=== PATIENT | female | born 1975 | race Caucasian/White ===

== ENCOUNTER 2021-04-04 16:51 | Emergency (ER) | payer MEDICAID, OTHER ==
[~2021-04-04] VITALS: Ht 177 cm; Wt 149.0 kg
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
[2021-04-04 17:04] VITALS: BP 156/86
[2021-04-04] MEDS ORDERED: ACETAMINOPHEN 500 MG TAB (TYLENOL) PO ONE (17:15)
--- NOTE | 2021-04-04 17:23 | Diagnostic Imaging Report ---
INDICATION: Trauma, pain COMPARISON: None available. TECHNIQUE: 3 radiographs of the left shoulder dated 04/04/2021 FINDINGS: The acromioclavicular joint is unremarkable. No acute fracture or dislocation. No destructive osseous process. The visualized left lung appears clear. No suspicious radiopaque foreign body. IMPRESSION: No acute osseous abnormality. Dictated by: Dictated on workstation # [id number]
--- NOTE | 2021-04-04 17:24 | Diagnostic Imaging Report ---
INDICATION: Trauma, pain COMPARISON: None available TECHNIQUE: 3 radiographs of the right foot dated 04/04/2021 FINDINGS: No acute fracture or dislocation. No destructive osseous process. The Lisfranc joint is well aligned. Mild scattered degenerative changes, greatest involving the 1st MTP joint. Moderate sized plantar calcaneal enthesophyte. No suspicious radiopaque foreign body. IMPRESSION: No acute osseous abnormality with mild degenerative changes present. Dictated by: Dictated on workstation # [id number]
== END 2021-04-04 18:10 | disposition home or self-care (01) ==
LOC: ER FS 16:55
DX: S46.012A Strain of muscle(s) and tendon(s) of the rotator cuff of left shoulder, initial encounter (principal); S90.31XA Contusion of right foot, initial encounter; Z72.0 Tobacco use; W20.8XXA Other cause of strike by thrown, projected or falling object, initial encounter
CPT/HCPCS: 73030; 73630; 99281

== ENCOUNTER → 2021-04-19 | Outpatient (CLI) | payer MEDICAID ==
[~2021-04-19] MED LIST: ACHD5005 PO
--- NOTE | 2021-04-19 15:48 | Diagnostic Imaging Report ---
EXAMINATION: Left clavicle at 2:01 PM. INDICATION: Clavicular pain. TECHNIQUE: Two views were obtained. FINDINGS: There is no fracture, dislocation, or acute bony abnormality evident. There is only mild degenerative disease of the glenohumeral and acromioclavicular joints. These degenerative changes are no different than on the recent left shoulder exam of 04/04/2021. The soft tissues are unremarkable. IMPRESSION: There is no acute bony abnormality appreciated. Dictated by: Dictated on workstation # [id number]
== END ==
LOC: RAD FS 13:47
PROVIDERS: ATTEND Nurse Practitioner
DX: M25.512 Pain in left shoulder (principal)
CPT/HCPCS: 73000

== ENCOUNTER 2021-04-21 09:47 | Emergency (ER) | payer OTHER, MEDICAID ==
[~2021-04-21] VITALS: Ht 177 cm; Wt 147.0 kg
[2021-04-21] MEDS ORDERED: morphine INJ 10 MG/ML 1ML (SYR OR VIAL) IVP STA (09:55)
[2021-04-21] MEDS ORDERED: ONDANSETRON 4 MG/2 ML (SDV) Z0FRAN IVP ONE (10:00)
[2021-04-21] MEDS ORDERED: NS IV 1000 ML 1,000 ML IV SCH (10:00)
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
[2021-04-21] MEDS ORDERED: CATHETER FLUSH 10 ML SYR IV PRN (10:15)
[2021-04-21] MEDS ORDERED: IOHEXOL 350 MG/ML 100 ML (OMNIPAQUE 350) VIAL IV ONE (10:15)
[2021-04-21] MEDS ORDERED: fentaNYL INJ 100 MCG/2 ML AMP IVP ONE ×2 (10:15→11:30)
[2021-04-21] MEDS ORDERED: HOLD METFORMIN - RECEIVED CONTRAST 20 ML VIAL IV SCH (10:15)
[2021-04-21] MEDS ORDERED: NS 100 ML (IVPB) BAG IV ONE (10:15)
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
[2021-04-21 10:53] LABS: PROTHROMBIN TIME PATIENT 13.1 SEC (12.2-14.7)
[2021-04-21 10:59] LABS: HEMATOCRIT 37 % (35-52); HEMOGLOBIN 12.1 g/dL (11.5-16.0); LYMPHOCYTES % (AUTO) 30 % (12-44); MEAN CORPUSCULAR HEMOGLOBIN 26 pg (25-34); MEAN CORPUSCULAR HGB CONC 33 g/dL (32-36); MEAN CORPUSCULAR VOLUME 80 fL (80-99); MEAN PLATELET VOLUME 9.4 fL (9.0-12.2); MONOCYTES % (AUTO) 5 % (0-12); NEUTROPHILS % (AUTO) 62 % (42-75); PLATELET COUNT 459 10^3/uL (130-400); WHITE BLOOD COUNT 12.8 10^3/uL (4.3-11.0)
[2021-04-21 11:00] LABS: BASOPHILS % (AUTO) 0 % (0-10); EOSINOPHILS # (AUTO) 0.3 10^3/uL (0.0-0.3); EOSINOPHILS % (AUTO) 3 % (0-10); LYMPHOCYTES # (AUTO) 3.8 X 10^3 (1.0-4.0); MONOCYTES # (AUTO) 0.6 X 10^3 (0.0-1.0); NEUTROPHILS # (AUTO) 7.9 X 10^3 (1.8-7.8)
[2021-04-21 11:03] LABS: ALKALINE PHOSPHATASE 94 U/L (40-136); BILIRUBIN,TOTAL 0.2 MG/DL (0.1-1.0); BUN/CREATININE RATIO 13; CALCIUM 8.5 MG/DL (8.5-10.1); CARBON DIOXIDE 24 MMOL/L (21-32); CHLORIDE 104 MMOL/L (98-107); CREATININE SERUM 0.79 MG/DL (0.60-1.30); GFR ESTIMATED 79; GLUCOSE 91 MG/DL (70-105); SODIUM 137 MMOL/L (135-145)
[2021-04-21 11:04] LABS: ALANINE AMINOTRANSFERASE 14 U/L (0-55); ALBUMIN 3.1 GM/DL (3.2-4.5); LIPASE 22 U/L (8-78); TOTAL PROTEIN 6.7 GM/DL (6.4-8.2)
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
[2021-04-21] MEDS ORDERED: ACHD5005 PO ×5 (12:23→12:47)
[2021-04-21 12:58] LABS: AMPHETAMINE SCREEN, URINE POSITIVE (NEGATIVE); BARBITURATE SCREEN URINE NEGATIVE (NEGATIVE); BENZODIAZEPINES SCREEN URINE NEGATIVE (NEGATIVE); CANNABINOID SCREEN, URINE NEGATIVE (NEGATIVE); COCAINE SCREEN URINE NEGATIVE (NEGATIVE); METHADONE STAT NEGATIVE (NEGATIVE); METHAMPHETAMINE SCREEN URINE S POSITIVE (NEGATIVE); OPIATE SCREEN URINE NEGATIVE (NEGATIVE); OXYCODONE STAT NEGATIVE (NEGATIVE); PROPOXYPHENE STAT NEGATIVE (NEGATIVE); TRICYCLIC ANTIDEPRESSANTS SCRE NEGATIVE (NEGATIVE)
[2021-04-21 19:02] VITALS: BP 123/67
== END 2021-04-21 12:34 | disposition home or self-care (01) ==
LOC: EDUNIT# 09:47 → ER FS 09:48
DX: S33.5XXA Sprain of ligaments of lumbar spine, initial encounter (principal); S13.9XXA Sprain of joints and ligaments of unspecified parts of neck, initial encounter; S43.401A Unspecified sprain of right shoulder joint, initial encounter; S63.502A Unspecified sprain of left wrist, initial encounter; S09.90XA Unspecified injury of head, initial encounter; R40.2410 Glasgow coma scale score 13-15, unspecified time; V89.2XXA Person injured in unspecified motor-vehicle accident, traffic, initial encounter
CPT/HCPCS: 36415; 70450; 71260; 72125; 72128; 72131; 73030; 73110; 74177; 80053; 80306; 83690; 85025; 85610; 85730; 99283; G0480; 80320

== ENCOUNTER → 2021-05-03 | Outpatient (CLI) | payer OTHER, MEDICAID ==
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
== END ==
LOC: RAD FS 08:34
PROVIDERS: ATTEND Nurse Practitioner
DX: M54.50 Low back pain, unspecified (principal); M25.552 Pain in left hip
CPT/HCPCS: 72100; 73502